=== PATIENT | female | born 1975 | race Caucasian/White ===

== ENCOUNTER 2020-04-22 10:38 | Outpatient (CLI) | payer OTHER, SELFPAY ==
--- NOTE | ~2020-04-22 | MM_ITS ---
EXAMINATION: MM screening jerry BI w raffi HISTORY: Screening mammogram TECHNIQUE: Craniocaudal and mediolateral oblique 3-D tomosynthesis images were obtained and synthetic 2-D images were generated. CAD analysis was submitted and interpreted. COMPARISON: 12/31/2018, 12/19/2017, 12/12/2016 bilateral digital screening mammogram examinations BREAST PARENCHYMAL COMPOSITION: The breasts are heterogeneously dense, which may obscure small masses . FINDINGS: There is no evidence of suspicious mass, calcification, or architectural distortion to sugg est malignancy in either breast. There has been no suspicious interval change. IMPRESSION: 1. No mammographic evidence of malignancy. 2. Recommend routine screening mammography in one year. BI-RADS Category 1: Negative Reviewed, dictated and finalized at location A.
== END 2020-04-22 10:39 | disposition home or self-care (01) ==
LOC: ANHIMG 10:43
PROVIDERS: PCP Physician Assistant; Visit Provider Obstetrics & Gynecology
DX: Z12.31 Encounter for screening mammogram for malignant neoplasm of breast (principal)
CPT/HCPCS: 77063; 77067

== ENCOUNTER → 2021-04-25 15:07 | Outpatient (CLI) | payer OTHER, SELFPAY ==
--- NOTE | ~2021-04-25 | MM_ITS ---
EXAMINATION: MM screening jerry BI w raffi HISTORY: Screening mammogram TECHNIQUE: Craniocaudal and mediolateral oblique 3-D tomosynthesis images were obtained and synthetic 2-D images were generated. CAD analysis was submitted and interpreted. COMPARISON: 04/22/2020, 12/31/2018, 12/19/2017 bilateral digital screening mammogram examinations BREAST PARENCHYMAL COMPOSITION: There are scattered areas of fibroglandular density. FINDINGS: There is no evidence of suspicious mass, calcification, or architectural distortion to sugg est malignancy in either breast. There has been no suspicious interval change. IMPRESSION: 1. No mammographic evidence of malignancy. 2. Recommend routine screening mammography in one year. BI-RADS Category 1: Negative Reviewed, dictated and finalized at location A.
== END ==
PROVIDERS: PCP Physician Assistant; Visit Provider Obstetrics & Gynecology
DX: Z12.31 Encounter for screening mammogram for malignant neoplasm of breast (principal)
CPT/HCPCS: 77063; 77067

== ENCOUNTER 2022-06-19 09:03 | Outpatient (CLI) | payer OTHER, SELFPAY ==
--- NOTE | ~2022-06-19 | MM_ITS ---
EXAMINATION: MM screening jerry BI w raffi HISTORY: Screening TECHNIQUE: Craniocaudal and mediolateral oblique 3-D tomosynthesis images were obtained and synthetic 2-D images were generated. CAD analysis was submitted and interpreted. COMPARISON: Comparison to multiple prior studies sequentially, with oldest reviewed study dated 09/20. BREAST PARENCHYMAL COMPOSITION: Breast composed of scattered areas of fibroglandular density FINDINGS: There is no evidence of suspicious mass, calcification, or architectural distortion to sugg est malignancy in either breast. There has been no suspicious interval change. IMPRESSION: 1. No mammographic evidence of malignancy. 2. Recommend routine screening mammography in one year. 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
== END 2022-06-19 09:04 | disposition home or self-care (01) ==
LOC: ANHIMG 09:04
PROVIDERS: PCP Physician Assistant; Visit Provider Obstetrics & Gynecology
DX: Z12.31 Encounter for screening mammogram for malignant neoplasm of breast (principal)
CPT/HCPCS: 77063; 77067

== ENCOUNTER 2022-11-30 01:06 | Day surgery (SDC) | payer OTHER, SELFPAY ==
[2022-11-13 14:51] VITALS: BMI 29.0
[2022-11-30 08:44] VITALS: BP 138/111; PULSE 100; RESP 18; TEMP 36.3; O2SAT 100
[2022-11-30] MEDS: LACTATED RINGERS 1,000 ML 150 ML IV CONT (09:18)
--- NOTE | 2022-11-30 09:29 | P.HP_ITS ---
History of Present Illness History of Present Illness Consent: Risks, benefits, and alternatives have been discussed and questions answered. Patient agrees to proceed with procedure. Chief complaint: neoplasm screening Narrative: Sue Elizabeth is a 47 year old female Presents for screening colonoscopy. Patient's current weight appetite and bowel movements are normal. Patient denies abdominal pain. She has had no bleeding. Family history is noncontribu tory. Review of Systems Review of Systems: Review of systems noncontributory. 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 2021 Depression Migraines Skin problem Small bowel problem Surgical History Surgical History History of hysterectomy RATLH uterine prolapse; fibroids , adenomyosis Benign Family History Family History Other Diabetes mellitus Heart disease Hypertension Social History Social History (Updated 12/19/21 @ 14:43 by Gayathri Sabillon MA) Smoking status: Former smoker Tobacco type: cigarettes Alcohol intake: current Alcohol use details: 2 Substance use: never Substance use type: does not use Living arrangements: with family Occupation/Education: occupation Gender identity (if verbalized by the patient): Female Sexual Orientation (if Verbalized by the Patient): Straight or Heterosexual Spiritual care concerns: No Meds Home Medications and Allergies Allergies Allergy/AdvReac Type Severity Reaction Status Date / Time latex Allergy Unknown ITCHING Verified 11/30/22 08:43 GLOVES Vital Signs Vital Signs - 24 hr 11/30/22 08:44 Temperature 97.3 F L Pulse Rate 100 Respiratory Rate 18 Blood Pressure 138/111 H Pulse Oximetry 100 Oxygen Delivery Room Air Exam Narrative: Physical exam reveals patient to be alert. Vital signs stable. HEENT exam is unremarkable. Patient is anicteric. Lungs are clear to auscultation and percussion. Heart is without murmur or extra sounds. Abdomen bowel sounds are present soft nontender with no organomegaly. Digital external rectal exam is normal. Assessment and Plan Assessment and plan (1) Encounter for screening colonoscopy: Code(s): Z12.11 - Encounter for screening for malignant neoplasm of colon Status: Acute Assessment and Plan: Patient presents for screening colonoscopy. She appears to be at average risk for colon polyps. Further recommendations may be given after endoscopy.
--- NOTE | 2022-11-30 10:03 | P.PNAN_ITS ---
Anes - Initial Pre Proc Eval Procedure: Operation Date: 11/30/22 10:15 Proposed Procedures p Screening Colonoscopy - Adrian Farmer MD Date/Time: 11/30/22 10:03 Surgeon: Adrian Farmer MD Pre Op Diagnosis: neoplasm screening Patient Data Age: 47 Gender: F Height: 1.57 m Weight: 72.5 kg Last Vital Signs Temp 97.3 F L 11/30/22 08:44 Pulse 100 11/30/22 08:44 Resp 18 11/30/22 08:44 BP 138/111 H 11/30/22 08:44 Pulse Ox 100 11/30/22 08:44 O2 Del Method Room Air 11/30/22 08:44 Allergies Allergy/AdvReac Type Severity Reaction Status Date / Time latex Allergy Unknown ITCHING Verified 11/30/22 08:43 GLOVES Patient hx anesthesia problems: none Family hx anesthesia problems: none Results Review: All pre-operative results and documents have been reviewed as part of the pre- operative evaluation. 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 Depression Migraines Skin problem Small bowel problem Surgical History Surgical History History of hysterectomy RATLH uterine prolapse; fibroids , adenomyosis Benign Family History Family History Other Diabetes mellitus Heart disease Hypertension Social History Social History (Updated 12/19/21 @ 14:43 by Gayathri Sabillon MA) Smoking status: Former smoker Tobacco type: cigarettes Alcohol intake: current Alcohol use details: 2 Substance use: never Substance use type: does not use Living arrangements: with family Occupation/Education: occupation Gender identity (if verbalized by the patient): Female Sexual Orientation (if Verbalized by the Patient): Straight or Heterosexual Spiritual care concerns: No Anes - Eval Final PreProcedure Day of Procedure 11/30/22 10:03 Patient weight: normal Heart: regular rate and rhythm Lungs: clear to auscultation Airway: Mallampati scale class II Neurological: alert and oriented Last oral intake: >/= 8 hours ASA classification: II Emergent: no Anesthetic plan: proceed Anesthesia type and monitoring: general GIVS and standard monitoring Results Review: All pre-operative results and documents have been reviewed as part of the pre- operative evaluation. Informed Consent: The patient's anesthetic plan and its attendant risks and benefits were discussed with the patient/family/POA. Questions were solicited and answers provided to the satisfaction of the patient/family/POA.
[2022-11-30 10:29] VITALS: BP 112/72; PULSE 72; RESP 20; O2SAT 99
[2022-11-30 10:39] VITALS: BP 111/77; PULSE 80; RESP 13; O2SAT 96
[2022-11-30 10:49] VITALS: BP 114/75; PULSE 82; RESP 18; O2SAT 98
== END 2022-11-30 10:58 | disposition home or self-care (01) ==
PROVIDERS: PCP Physician Assistant; Visit Provider Internal Medicine Gastroenterology
PROC: 0DJD8ZZ Inspection of Lower Intestinal Tract, Via Natural or Artificial Opening Endoscopic (ICD-10-PCS; CPT 45378; principal; 2022-11-30 10:15)
DX: Z12.11 Encounter for screening for malignant neoplasm of colon (principal); K64.8 Other hemorrhoids; Z87.891 Personal history of nicotine dependence
CPT/HCPCS: 45378; J2704; J7120

== ENCOUNTER → 2023-06-20 10:17 | Outpatient (CLI) | payer OTHER, SELFPAY ==
--- NOTE | ~2023-06-20 | MM_ITS ---
EXAMINATION: MM screening jerry BI w raffi HISTORY: Screening mammogram TECHNIQUE: Craniocaudal and mediolateral oblique 3-D tomosynthesis images were obtained and synthetic 2-D images were generated. CAD analysis was submitted and interpreted. COMPARISON: 06/19/2022, 04/25/2021, 04/22/2020 bilateral screening mammogram examinations BREAST PARENCHYMAL COMPOSITION: There are scattered areas of fibroglandular density. FINDINGS: There is no evidence of suspicious mass, calcification, or architectural distortion to sugg est malignancy in either breast. There has been no suspicious interval change. IMPRESSION: 1. No mammographic evidence of malignancy. 2. Recommend routine screening mammography in one year. BI-RADS Category 1: Negative Reviewed, dictated and finalized at location A. 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
== END ==
PROVIDERS: PCP Physician Assistant; Visit Provider Obstetrics & Gynecology
DX: Z12.31 Encounter for screening mammogram for malignant neoplasm of breast (principal)
CPT/HCPCS: 77063; 77067

== ENCOUNTER 2024-06-10 11:29 | Outpatient (CLI) | payer BC, SELFPAY ==
--- NOTE | ~2024-06-10 | MMUS_ITS ---
EXAMINATION: MM diagnostic jerry BI w raffi, US breast LT limited HISTORY: Left breast redness. Recent course of antibiotics with improvement. TECHNIQUE: Additional 3-D tomosynthesis images of the breasts were performed and synthetic 2-D images were generated. CAD analysis was submitted and interpreted. High resolution Limited left breast ultr asound was performed. COMPARISON: Comparison to multiple prior studies sequentially, with oldest reviewed study dated 12/19. BREAST PARENCHYMAL COMPOSITION: Not dense: There are scattered areas of fibroglandular density. FINDINGS: MAMMOGRAPHIC FINDINGS: The breasts are stable. There are no suspicious masses, calcifications or architectural distortion in either breast to suggest malignancy. ULTRASOUND: Limited left breast ultrasound: Normal heterogeneous echotexture without focal solid or cystic mass. IMPRESSION: 1. No evidence for malignancy in either breast. 2. Routine yearly screening mammogram and regular clinical breast examination are recommended. BI-RADS Category 1: Negative Reviewed, dictated and finalized at location B. 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 No evidence for malignancy in either breast. 2. Routine yearly screening mammogram and regular clinical breast examination a re recommended. BI-RADS Category 1: Negative
== END 2024-06-10 11:30 | disposition home or self-care (01) ==
LOC: ANHIMG 11:30
PROVIDERS: PCP Physician Assistant; Visit Provider Student in an Organized Health Care Education/Training Program
DX: N63.20 Unspecified lump in the left breast, unspecified quadrant (principal)
CPT/HCPCS: 76642; 77062; 77066; G0279